=== PATIENT | female | born 1960 | race Caucasian/White ===

== ENCOUNTER → 2023-08-06 09:56 | Outpatient (REF) | payer OTHER, SELFPAY | LOC: HWRAD 09:56 | PROVIDERS: ATTENDING PHYSICIAN Urology; FAMILY PHYSICIAN Physician Assistant | DX: N20.0 Calculus of kidney (principal); N15.1 Renal and perinephric abscess; N13.5 Crossing vessel and stricture of ureter without hydronephrosis | CPT/HCPCS: 76775 ==

== ENCOUNTER → 2025-01-12 09:57 | Outpatient (REF) | payer OTHER, SELFPAY | LOC: HWRAD 09:57 | PROVIDERS: ATTENDING PHYSICIAN Urology; FAMILY PHYSICIAN Family Medicine | DX: N20.0 Calculus of kidney (principal); N15.1 Renal and perinephric abscess; N13.5 Crossing vessel and stricture of ureter without hydronephrosis | CPT/HCPCS: 76775 ==